=== PATIENT | female | born 1940 | race Caucasian/White ===

== ENCOUNTER 2017-06-30 09:56 | Observation (INO) | payer OTHER ==
[2017-06-30] MEDS ORDERED: NA CHLORIDE 0.9% 500 ML ONE (11:11)
[2017-06-30 11:29] LABS: Potassium 3.7 mEq/L (3.6-5.0)
[2017-06-30 11:31] LABS: Absolute Monocytes 0.4 K/uL (0.1-1.3); Absolute Neutrophil 4.6 K/uL (1.8-8.0); Basophils % 0.2 % (0-1.3); Eosinophils % 0.1 % (0-4.4); Hematocrit 30.8 % (36.0-45.0); Lymphocytes % 16.6 % (15.3-44.8); MCH 31.7 pg (27.0-35.0); MCV 96.1 fL (80-100); MPV 8.3 fL (7.6-11.3); Monocytes % 6.8 % (3.3-12.3)
--- NOTE | 2017-06-30 11:42 | RAD REPORT ---
EXAM DESCRIPTION: CT - Head C Spine Cap Wo Con - 06/30/2017 11:22 am CLINICAL HISTORY: Trauma, head and neck injury. Chest, abdomen and pelvis pain. COMPARISON: None. TECHNIQUE: CT head without contrast. CT cervical spine without contrast with coronal and sagittal reformatted images. CT chest, abdomen and pelvis without contrast with coronal and sagittal reformatted images of the [facility] [place]. All CT scans are performed using dose optimization technique as appropriate and may include automated exposure control or mA/KV adjustment according to patient size. FINDINGS: CT HEAD WITHOUT CONTRAST: A motion degraded study is submitted. No gross intracranial hemorrhage or midline shift is seen. Adva nce generalized brain atrophy is present with advanced periventricular and deep white matter chronic microvascular ischemic changes. Small frontal scalp hematoma. The paranasal sinuses and mastoids are clear. The calvarium is intact. CT CERVICAL SPINE WITHOUT CONTRAST: No fracture or subluxation. The prevertebral soft tissues are normal in thickness. CT CHEST, ABDOMEN, PELVIS WITHOUT CONTRAST: NOTE: Lack of contrast is a significant limitation in the assessment of trauma related findings. Spec ifically, solid organ, vascular and bowel evaluation is significantly limited. A small right pneumothorax is present, estimated at 15% of lung volume.No tension component is seen. No evidence of intra-abdominal visceral injury, free fluid or free air is seen within the above detai led limitations. No concerning pelvic findings. Right-sided inferolateral rib fractures noted, with the tenth rib fracture displaced moderately. Hair line fractures of the ninth and eleventh and twelth ribs are probably also present but less displaced /significant. Air is seen along the right thoracic cage soft tissues. IMPRESSION: Small right-sided pneumothorax is present likely caused by several right lateral inferio r rib fractures. Findings were discussed Dr. Castelan in emergency room 11:30 a.m. 06/30/2017 by telephone.
--- NOTE | 2017-06-30 12:34 | ER ---
Nurse's Notes [facility] Name: Char Hilliard Age: 76 yrs Sex: Female : 1940 Arrival Date: 06/30/2017 Time: 10:02 Bed 5 Private MD: Diagnosis: Right rib fractures, right pneumothorax, fall from upright position, closed head injury, scalp laceration, chest wall contusion, dementia, hypertention - poorly controlled, tachycardia, staple wound closure - right scalp, anemia - unspecified Presentation: 06/30 10:10 Presenting complaint: EMS states: Patient became weak and fell from a standing position ae1 striking her head against an entertainment center on the way down. Transition of care: [facility]. Onset of symptoms was June 30, 2017. Care prior to arrival: V/S 160's systolic. 10:10 Acuity: TUSHAR 3 ae1 10:10 Method Of Arrival: EMS: [facility] ae1 Triage Assessment: 10:04 General: Appears uncomfortable, slender, Behavior is cooperative, anxious, restless, ae1 patient is shaking. Pain: Complains of pain in head and back of head. EENT: No signs and/or symptoms were reported regarding the EENT system. Neuro: Level of Consciousness is awake, alert, obeys commands, Oriented to person. Cardiovascular: Patient's skin is warm and dry. Respiratory: Airway is patent Respiratory effort is even, unlabored, Respiratory pattern is regular, symmetrical. GI: No signs and/or symptoms were reported involving the gastrointestinal system. : No signs and/or symptoms were reported regarding the genitourinary system. Derm: No signs and/or symptoms reported regarding the dermatologic system. Derm: Wound noted top of head, forehead and right mormon Other: Patient has a bandage wrapped around head. Historical: - Allergies: 10:09 Codeine; ae1 10:09 hydromorphone HCl; ae1 10:09 Phenobarbital; ae1 - PMHx: 10:09 Alzheimers; Hypertension; Diabetes - NIDDM; ae1 - Immunization history:: Adult Immunizations. - Social history:: Smoking status: Patient/guardian denies using tobacco. Screenin:05 Abuse screen: Denies threats or abuse. Nutritional screening: No deficits noted. ae1 Tuberculosis screening: No symptoms or risk factors identified. Fall Risk Fall in past 12 months (25 points). Secondary diagnosis (15 points) IV access (20 points). Ambulatory Aid- Crutches/Cane/Walker (15 pts). Gait- Weak (10 pts.). Mental Status- Overestimates/Forgets Limitations (15 pts.). Assessment: 11:05 Reassessment: Cleansed wound to right side of head, laceration approx. 1.5 inches in ae1 length. no bleeding noted, dried blood. 12:47 Reassessment: patient appears more relaxed. ae1 14:06 Reassessment: Patient appears in no apparent distress at this time. Patient is resting ae1 with eyes closed, respirations even and unlabored. 15:11 Reassessment: Report called to MARÍA De Leon receiving nurse in ICU .registration notified ae1 that report has been called. 15:23 Reassessment: Report called to Wendy receiving nurse via telephone, registration ae1 notified that report has been called. Vital Signs: 10:02 BP 162 / 134; Pulse 110; Resp 16; Temp 98.3(A); Pulse Ox 95% on R/A; Weight 49.9 kg (R);ae1 12:46 BP 164 / 116; Pulse 88; Resp 17; Pulse Ox 100% on R/A; ae1 14:08 BP 170 / 100; Pulse 108; Resp 16; Pulse Ox 100% on R/A; ae1 14:56 BP 168 / 98; Pulse 94; Resp 19; Pulse Ox 100% on R/A; ae1 ED Course: 10:02 Patient arrived in ED. ae1 10:12 Triage completed. ae1 10:12 Placed in gown. Bed in low position. Side rails up X2. wellness program manager on. Pulse ox on. ae1 NIBP on. Warm blanket given. 10:12 Arm band placed on right wrist. ae1 10:21 Christian Castelan MD is Attending Physician. kdr 10:50 Jeromy Brownlee, MARÍA is Primary Nurse. ae1 10:50 Note: pt not ready, starting iv. jg1 11:[address] via stretcher. sj 11:08 CT completed. Patient tolerated procedure well. Patient moved back from CT. sj 11:54 Straight cath inserted, using sterile technique, 16 Fr. Specimen obtained. Returned ae1 clear yellow urine. Patient tolerated well. Inserted saline lock: 20 gauge in right antecubital area, using aseptic technique. ,using aseptic technique. BY David Johnson, executive director of nursing, using aseptic technique Blood collected. 12:31 Sean Amanda MD is Hospitalizing Provider. kdr 14:11 Deo Barnard DO is Hospitalizing Provider. kdr 14:56 Patient admitted, IV remains in place. ae1 16:10 No provider procedures requiring assistance completed. Patient admitted, IV remains in ae1 place. Administered Medications: 10:55 Drug: NS 0.9% 500 ml Volume: 500 ml; Route: IV; Rate: 1 bolus; Site: right antecubital; ae1 14:53 Follow up: IV Status: Completed infusion ae1 Outcome: 12:33 Decision to Hospitalize by Provider. kdr 16:11 Admitted to ICU accompanied by nurse, accompanied by tech, via stretcher, room 6, with ae1 chart. 16:11 Condition: stable 16:11 Patient left the ED. ae1 Signatures: Christian Castelan MD MD kdr Garcia, Jessica jg1 Jones, Susan sj Elliott, Andrea, RN RN ae1 Corrections: (The following items were deleted from the chart) 14:12 10:04 Musculoskeletal: ae1 ae1
--- NOTE | 2017-06-30 12:34 | EDPHYS ---
Physician Documentation [facility] Name: Char Hilliard Age: 76 yrs Sex: Female : 1940 Arrival Date: 06/30/2017 Time: 10:02 Bed 5 Private MD: ED Physician Christian Castelan HPI: 06/30 14:14 This 76 yrs old Female presents to ER via EMS with complaints of Fall Injury. kdr 14:14 Little reliable information known. Reported by EMS that the patient fell from standing kdr though it is not known if the patient can stand on a normal basis. No other information was known. Historical: - Allergies: 10:09 Codeine; ae1 10:09 hydromorphone HCl; ae1 10:09 Phenobarbital; ae1 - PMHx: 10:09 Alzheimers; Hypertension; Diabetes - NIDDM; ae1 - Immunization history:: Adult Immunizations. - Social history:: Smoking status: Patient/guardian denies using tobacco. ROS: 14:14 Constitutional: Unobtainable secondary to dementia kdr 14:14 Unable to obtain ROS due to baseline dementia. Exam: 14:14 Constitutional: This is a well developed, well nourished patient who is awake, alert, kdr and in no acute distress. Head/Face: Normocephalic - right sided 1.5 cm lac Eyes: Pupils equal round and reactive to light, extra-ocular motions intact. Lids and lashes normal. Conjunctiva and sclera are non-icteric and not injected. Cornea within normal limits. Periorbital areas with no swelling, redness, or edema. Neck: Trachea midline, no thyromegaly or masses palpated, and no cervical lymphadenopathy. Supple, full range of motion without nuchal rigidity, or vertebral point tenderness. No Meningismus. Chest/axilla: Normal chest wall appearance and motion. Right sided tenderness with no deformity. No lesions are appreciated. Cardiovascular: Regular rate and rhythm with a normal S1 and S2. No gallops, murmurs, or rubs. Normal PMI, no JVD. No pulse deficits. Respiratory: Lungs have equal breath sounds bilaterally, clear to auscultation and percussion. No rales, rhonchi or wheezes noted. No increased work of breathing, no retractions or nasal flaring. Abdomen/GI: Soft, non-tender, with normal bowel sounds. No distension or tympany. No guarding or rebound. No evidence of tenderness throughout. Skin: Warm, dry with normal turgor. Normal color with no rashes, no lesions, and no evidence of cellulitis. MS/ Extremity: Pulses equal, no cyanosis. Neurovascular intact. Full, normal range of motion. Vital Signs: 10:02 BP 162 / 134; Pulse 110; Resp 16; Temp 98.3(A); Pulse Ox 95% on R/A; Weight 49.9 kg (R);ae1 12:46 BP 164 / 116; Pulse 88; Resp 17; Pulse Ox 100% on R/A; ae1 14:08 BP 170 / 100; Pulse 108; Resp 16; Pulse Ox 100% on R/A; ae1 14:56 BP 168 / 98; Pulse 94; Resp 19; Pulse Ox 100% on R/A; ae1 MDM: 12:33 Patient medically screened. kdr 14:14 Data reviewed: vital signs, nurses notes, lab test result(s), EKG, radiologic studies. kdr Counseling: I had a detailed discussion with the patient and/or guardian regarding: the historical points, exam findings, and any diagnostic results supporting the discharge/admit diagnosis, lab results, radiology results. Physician consultation: Sean Amanda initially asked me to admit the patient to him. Then a few minutes ago, he called back and indicated that the patient was not his at this time and asked that I admit the patient to the Hospitalist service. 06/30 10:39 Order name: CBC with Diff kdr 06/30 10:39 Order name: Chem 7 kdr 06/30 11:29 Order name: Basic Metabolic Panel; Complete Time: 12:18 EDND 06/30 11:31 Order name: CBC with Automated Diff; Complete Time: 12:18 EDND 06/30 11:55 Order name: Urine Dipstick--Ancillary (enter results) ms 06/30 14:15 Order name: Urine Dipstick-Ancillary EDND 06/30 10:39 Order name: CT Traumagram (Head C Spine CAP wo con) kdr 06/30 10:39 Order name: Urine Dipstick-Ancillary (obtain specimen): Cath; Complete Time: 10:41 kdr 06/30 11:42 Order name: CT; Complete Time: 12:18 EDMS Administered Medications: 10:55 Drug: NS 0.9% 500 ml Volume: 500 ml; Route: IV; Rate: 1 bolus; Site: right antecubital; ae1 14:53 Follow up: IV Status: Completed infusion ae1 Disposition: 06/30/17 12:33 Hospitalization ordered by Deo Barnard for Observation. Preliminary diagnosis is Right rib fractures, right pneumothorax, fall from upright position, closed head injury, scalp laceration, chest wall contusion, dementia, hypertention - poorly controlled, tachycardia, staple wound closure - right scalp, anemia - unspecified. - Bed requested for Intensive Care Unit. - Status is Observation. ae1 - Condition is Stable. - Problem is new. - Symptoms are unchanged. UTI on Admission? No Signatures: Dispatcher [employer] EDMS Christian Castelan MD MD kdr Solis, Maria ms Elliott, Andrea, RN RN ae1 Blanca Reza RN RN df
[2017-06-30] MEDS ORDERED: ACETAMINOPHEN 500 MG TAB PO PRN (12:40)
[2017-06-30] MEDS ORDERED: ONDANSETRON 4 MG/2 ML VIAL IV PRN (12:40)
[2017-06-30 14:15] LABS: Urine Blood TRACE (NEG); Urine Glucose NEGATIVE (NEG); Urine Protein 1+ (NEG)
[2017-06-30] MEDS ORDERED: ZIPRASIDONE MESYLA 20 MG/VIAL IM PRN (15:16)
[2017-06-30] MEDS ORDERED: HYDROCODONE/APAP 7.5/325 MG TAB PO PRN (15:16)
[2017-06-30] MEDS ORDERED: WATER FOR INJ,STERILE 10 ML IM PRN (15:16)
[2017-06-30] MEDS ORDERED: TRAMADOL HCL 50 MG TAB PO PRN (15:16)
[2017-06-30] MEDS ORDERED: D5 0.9 NS 1,000 ML IV SCH (15:16)
[2017-06-30] MEDS ORDERED: MORPHINE 2 MG/ML SYR IV PRN (15:16)
--- NOTE | 2017-06-30 15:34 | P.HP ---
Certification for Inpatient Patient admitted to: Observation With expected LOS: <2 Midnights Patient will require the following post-hospital care: Hospice Practitioner: I am a practitioner with admitting privileges, knowledge of patient current condition, hospital course, and medical plan of care. Services: Services provided to patient in accordance with Admission requirements found in Title 42 Section 412.3 of the Code of Federal Regulations Patient History Date of Service: 06/30/17 Primary Care Provider: [facility] detention/hospice Reason for admission: Fall, laceration, pneumothorax History of Present Illness: 76-year-old female with dementia recently hospitalized and admitted to hospice, came to the ER after a fall. She apparently fell at the detention. Patient suffered a laceration to her right posterior area of the head. The patient was confused and appeared dehydrated. CT traumagram showed no fracture to the C-spine. No intracranial abnormality was noted except for chronic ischemic changes. CT did show fractures to the right ribcage. The 10th rib was mildly displaced. Fractures to the 9th 11th and 12th showed minimal displacement. The patient was also found to have a small pneumothorax. It measured about 15%. No tension pneumothorax was noted. The patient was anemic. Lab otherwise unremarkable. No UTI was identified. Patient also had a healing left facial hematoma. The patient appeared confused. The patient was evaluated by surgery. Surgery recommended that we monitor the patient closely. I was asked to admit the patient. When I saw the patient in the ER, she appeared disheveled. Patient is cachectic appearing. Patient confused. No family was present Allergies phenobarbital Adverse Reaction (Intermediate, Verified 05/11/16 12:52) Nausea/Vomiting meperidine [From Demerol] Adverse Reaction (Verified 05/13/16 08:44) Nausea/Vomiting codeine Allergy (Uncoded 06/24/17 05:31) Unknown hydromorphone HCl Allergy (Uncoded 06/24/16 08:28) Unknown Home medications list reviewed: Yes Home Medications: Acetaminophen [Tylenol] 325 mg PO Q6H PRN 06/24/17 Magnesium Hydroxide [Milk of Magnesia] 1,200 mg PO DAILY PRN 06/24/17 Ensure Enlive 237 ml PO BID #60 can 06/25/17 Multivitamin/Iron/Folic Acid [Multi-Day Plus Iron Tablet] 1 each PO DAILY #90 tablet 06/25/17 Sulfamethoxazole/Trimethoprim [Bactrim Ds Tablet] 1 each PO BID #14 tablet 06/25 - Past Medical/Surgical History Diabetic: No -: HTN -: Anemia -: Chronic lower back pain -: Alzheimer's dementia, severe -: Skin cancer removed -: Tubal ligation -: Hysterectomy -: Tonsilectomy Psychosocial/ Personal History: Power of family law attorney is a friend. Patient currently in hospice at a detention. [id number] DNR in place. - Family History Family History: Reviewed- Non-Contributory - Social History Smoking Status: Unknown if ever smoked Alcohol use: No CD- Drugs: No Caffeine use: Yes Place of Residence: [facility] Review of Systems is unable to be obtained Physical Examination - Physical Exam General: Alert, Cachectic, Disheveled, Demented, Confused HEENT: Other (Laceration to the posterior area of the head. It is located just behind the ear. No bleeding is noted. She also has a skin tear to the right frontal region. A healed hematoma noted to the left facial orbital area.) Neck: Supple, No Thyromegaly Respiratory: Clear to auscultation bilaterally, Normal air movement Cardiovascular: Normal pulses, Regular rate/rhythm Gastrointestinal: Normal bowel sounds, Soft and benign, Non-distended, No tenderness, No masses, No rebound, No guarding Musculoskeletal: No erythema, No tenderness, No warmth Integumentary: No erythema, Other (As above) Neurological: Normal speech, Dementia (Patient with severe dementia) - Studies Laboratory Data (last 24 hrs) 06/30/17 10:50: Sodium 141, Potassium 3.7, BUN 28 H, Creatinine 0.66, Glucose 153 H 06/30/17 10:50: WBC 6.1, Hgb 10.1 L, Hct 30.8 L, Plt Count 230 Assessment and Plan - Problems (Diagnosis) (1) Laceration of scalp Current Visit: Yes Status: Acute Plan: Laceration to scalp will receive braydon. Will continue with wound care. Patient was recently hospitalized for acute encephalopathy related to her dementia and UTI. On the most recent admission which occurred within the past 2 weeks, her power of family law attorney placed in hospice care. Patient has out-of- hospital DNR. Will reassess and make sure it that will continue. Patient also has right pneumothorax. This is small. This to be monitored with as per surgery. Will recheck chest x-ray in 6 hr to monitor. Will continue with oxygen. Physical therapy will need to be reassessed. Will have transition social worker confirm hospice and advanced directives. Case discussed with nurses. They are to confirm. I did leave a message with the power of family law attorney. Await for his call. Qualifiers: Encounter type: initial encounter Qualified Code(s): S01.01XA - Laceration without foreign body of scalp, initial encounter (2) Skin tear Current Visit: Yes Status: Acute Plan: Continue with wound care. (3) Pneumothorax Current Visit: Yes Status: Acute Plan: Small right pneumothorax noted. Will recheck chest x-ray in 6 hr. Will maintain oxygen saturation Qualifiers: Pneumothorax type: traumatic Encounter type: initial encounter Qualified Code(s): S27.0XXA - Traumatic pneumothorax, initial encounter (4) Multiple rib fractures Current Visit: Yes Status: Acute Plan: Multiple rib fractures noted. Will continue monitor closely. Will provide medication for pain. Qualifiers: Encounter type: initial encounter Fracture type: closed Laterality: right Qualified Code(s): S22.41XA - Multiple fractures of ribs, right side, initial encounter for closed fracture (5) Depression Current Visit: Yes Status: Chronic Plan: Will continue with her medication. Will provide medication for agitation Qualifiers: Depression Type: unspecified Qualified Code(s): F32.9 - Major depressive disorder, single episode, unspecified (6) Hypertension Current Visit: Yes Status: Chronic Plan: Will continue with her medication. Qualifiers: Hypertension type: essential hypertension Qualified Code(s): I10 - Essential (primary) hypertension (7) Anemia Current Visit: No Status: Chronic Plan: Will monitor closely. Qualifiers: Anemia type: unspecified type Qualified Code(s): D64.9 - Anemia, unspecified (8) Status post fall Onset Date: 06/24/17 Current Visit: No Status: Acute Plan: Continue with above plan of care. (9) Traumatic hematoma of left eyelid Onset Date: 06/24/17 Current Visit: No Status: Chronic Plan: Healing wound. Will continue with wound care. Qualifiers: Encounter type: initial encounter Qualified Code(s): S00.12XA - Contusion of left eyelid and periocular area, initial encounter (10) Alzheimer's dementia, late onset Onset Date: 06/24/17 Current Visit: No Status: Chronic Plan: Patient with severe dementia. Patient on hospice. Patient has [id number] DNR. Will need to confirm. Qualifiers: Dementia behavioral disturbance: with behavioral disturbance Qualified Code (s): G30.1 - Alzheimer's disease with late onset; F02.81 - Dementia in other diseases classified elsewhere with behavioral disturbance; F02.81 - Dementia in other diseases classified elsewhere with behavioral disturbance; F02.81 - Dementia in other diseases classified elsewhere with behavioral disturbance Discharge Plan: [facility] (With hospice) Plan to discharge in: 48 Hours - Advance Directives Does patient have a Living Will: No Does patient have a Durable POA for Healthcare: No - Code Status/Comfort Care Code Status Assessed: No (Will need to confirm her [id number] DNR. Along with hospice) Comfort Measures: Hospice Care Time Spent Managing Pts Care (In Minutes): 55
[2017-06-30] MEDS: ENOXAPARIN 40 MG/0.4 ML SQ SCH (16:00)
--- NOTE | 2017-06-30 16:49 | RAD REPORT ---
EXAM DESCRIPTION: RAD - Chest Single View - 06/30/2017 4:30 pm CLINICAL HISTORY: Pneumothorax COMPARISON: CT trauma study June 30, portable chest June 24 TECHNIQUE: AP portable chest image was obtained in expiration CT 1619 hours . FINDINGS: Patient has baseline fibrotic lung change that is stable. No pulmonary contusion, pulmonar y edema or other new or progressive lung parenchymal process. Known rib fractures are difficult to as sess on this study. No gross change. Heart and vasculature are normal. No new or enlarging pleural fl uid or blood collection. Scan artifact overlies the lateral left chest. A small right apical pneumoth orax is present. Anterior pneumothorax cannot be accurately assessed on portable imaging. Comparing w ith a CT imaging is difficult. There is no evidence for enlargement of the pneumothorax. Trachea is m idline. No acute aortic findings suspected. IMPRESSION: Small 5-10% right apical pneumothorax. No suspicion for enlargement since the earlier CT study. Any anterior pneumothorax component cannot be accurately assessed on a portable examination. No pulmonary contusion, pulmonary edema or pleural fluid/ blood collection.
[2017-06-30] MEDS: MORPHINE 4 MG/ML SYR IV PRN (16:59)
[2017-06-30] MEDS: LORazepam 2 MG/ML VIAL IV PRN (17:20)
[2017-06-30] MEDS: NA CHLORIDE 0.9% 1,000 ML IV SCH (17:38)
[2017-06-30] MEDS ORDERED: DULOXETINE 30 MG CAP PO SCH (21:00)
[2017-06-30] MEDS: MEMANTINE HCL 10 MG TABLET PO SCH (21:42)
[2017-06-30] MEDS: CARVEDILOL 6.25 MG TAB PO SCH (21:42)
--- NOTE | 2017-07-01 00:09 | PN ---
Date of Progress Note: 06/30/2017 Time: 2114 This is a followup note from the H and P today. The patient is stable. Vital signs are stable. No short of breath. No chest pain. O2 saturation 99%. The patient denies any shortness of breath. Ch est, bilateral breath sounds. No crepitus. Chest x-ray reviewed and shows about 10% pneumothorax wi th small one with no evidence of tension pneumothorax. Plan: We are going to continue observation. Her x-ray will be done, O2 sat monitoring, neuro checks , abdomen examination. Right now the abdomen is also benign. TEZ/MODWilton Voice ID: [id number] Report ID: [id number]
[2017-07-01] MEDS: MORPHINE 4 MG/ML SYR IV PRN ×2 (03:58→08:52)
[2017-07-01] MEDS: NA CHLORIDE 0.9% 1,000 ML IV SCH (05:41)
[2017-07-01 06:24] LABS: Absolute Lymphocytes (CBC) 1.9 K/uL (0.7-4.9); Absolute Monocytes 0.4 K/uL (0.1-1.3); Absolute Neutrophil 2.9 K/uL (1.8-8.0); Basophils % 0.6 % (0-1.3); Hematocrit 27.6 % (36.0-45.0); MCV 96.1 fL (80-100); MPV 8.3 fL (7.6-11.3); Monocytes % 8.4 % (3.3-12.3); RBC Red Blood Cell Count 2.87 M/uL (3.86-4.86)
[2017-07-01 06:33] VITALS: BMI 19.4
[2017-07-01 06:41] LABS: BUN Blood Urea Nitrogen 17 mg/dL (6-20); Bicarbonate 28 mEq/L (21-31); Glomerular Filtration Rate > 90 mL/min (=/>90); Glucose Level 95 mg/dL (65-120); Magnesium 1.7 mg/dL (1.8-2.5); Potassium 4.1 mEq/L (3.6-5.0); Sodium Level 138 mEq/L (135-145)
[2017-07-01 07:51] VITALS: O2SAT 99
[2017-07-01] MEDS: ENOXAPARIN 40 MG/0.4 ML SQ SCH (08:32)
[2017-07-01] MEDS: MEMANTINE HCL 10 MG TABLET PO SCH (08:32)
[2017-07-01] MEDS: CARVEDILOL 6.25 MG TAB PO SCH (08:33)
[2017-07-01] MEDS ORDERED: ISOSORBIDE MONO SR 30 MG TAB PO SCH (09:00)
--- NOTE | 2017-07-01 09:41 | RAD REPORT ---
EXAM DESCRIPTION: RAD - Chest Single View - 07/01/2017 8:14 am CLINICAL HISTORY: History of pneumothorax. COMPARISON: 06/30/2017, 06/24/2017 FINDINGS: Portable technique limits examination quality. Small right pneumothorax is again noted, similar in appearance. No significant progression is seen. T he heart is normal in size. Several right-sided inferolateral rib fractures noted.
[2017-07-01] MEDS: LORazepam 2 MG/ML VIAL IV PRN (11:35)
--- NOTE | 2017-07-01 12:39 | P.DS ---
Admission Date: 06/30/17 Discharge Date: 07/01/17 Primary Care Provider: [facility] Disposition: TRANSFER TO SENIOR CARE Discharge Condition: GOOD Reason for Admission: Fall, laceration, pneumothorax Consultations: Surgery-Dr. Castaneda Procedures: CT Scan: COMPARISON: None. TECHNIQUE: CT head without contrast. CT cervical spine without contrast with coronal and sagittal reformatted images. CT chest, abdomen and pelvis without contrast with coronal and sagittal reformatted images of the spine. All CT scans are performed using dose optimization technique as appropriate and may include automated exposure control or mA/KV adjustment according to patient size. FINDINGS: CT HEAD WITHOUT CONTRAST: A motion degraded study is submitted. No gross intracranial hemorrhage or midline shift is seen. Advance generalized brain atrophy is present with advanced periventricular and deep white matter chronic microvascular ischemic changes. Small frontal scalp hematoma. The paranasal sinuses and mastoids are clear. The calvarium is intact. CT CERVICAL SPINE WITHOUT CONTRAST: No fracture or subluxation. The prevertebral soft tissues are normal in thickness. CT CHEST, ABDOMEN, PELVIS WITHOUT CONTRAST: NOTE: Lack of contrast is a significant limitation in the assessment of trauma related findings. Specifically, solid organ, vascular and bowel evaluation is significantly limited. A small right pneumothorax is present, estimated at 15% of lung volume.No tension component is seen. No evidence of intra-abdominal visceral injury, free fluid or free air is seen within the above detailed limitations. No concerning pelvic findings. Right-sided inferolateral rib fractures noted, with the tenth rib fracture displaced moderately. Hairline fractures of the ninth and eleventh and twelth ribs are probably also present but less displaced/significant. Air is seen along the right thoracic cage soft tissues. IMPRESSION: Small right-sided pneumothorax is present likely caused by several right lateral inferior rib fractures. Findings were discussed Dr. Castelan in emergency room 11:30 a.m. 06/30/2017 by telephone. - Problems (1) Laceration of scalp Onset Date: 07/01/17 Current Visit: Yes Status: Acute Qualifiers: Encounter type: initial encounter Qualified Code(s): S01.01XA - Laceration without foreign body of scalp, initial encounter (2) Skin tear Onset Date: 07/01/17 Current Visit: Yes Status: Acute (3) Pneumothorax Onset Date: 07/01/17 Current Visit: Yes Status: Acute Qualifiers: Pneumothorax type: traumatic Encounter type: initial encounter Qualified Code(s): S27.0XXA - Traumatic pneumothorax, initial encounter (4) Multiple rib fractures Onset Date: 07/01/17 Current Visit: Yes Status: Acute Qualifiers: Encounter type: initial encounter Fracture type: closed Laterality: right Qualified Code(s): S22.41XA - Multiple fractures of ribs, right side, initial encounter for closed fracture (5) Depression Onset Date: 07/01/17 Current Visit: Yes Status: Chronic Qualifiers: Depression Type: unspecified Qualified Code(s): F32.9 - Major depressive disorder, single episode, unspecified (6) Hypertension Onset Date: 07/01/17 Current Visit: Yes Status: Chronic Qualifiers: Hypertension type: essential hypertension Qualified Code(s): I10 - Essential (primary) hypertension (7) Anemia Onset Date: 07/01/17 Current Visit: Yes Status: Chronic Qualifiers: Anemia type: unspecified type Qualified Code(s): D64.9 - Anemia, unspecified (8) Status post fall Onset Date: 06/24/17 Current Visit: No Status: Acute (9) Traumatic hematoma of left eyelid Onset Date: 06/24/17 Current Visit: Yes Status: Chronic Qualifiers: Encounter type: initial encounter Qualified Code(s): S00.12XA - Contusion of left eyelid and periocular area, initial encounter (10) Alzheimer's dementia, late onset Onset Date: 06/24/17 Current Visit: Yes Status: Chronic Qualifiers: Dementia behavioral disturbance: with behavioral disturbance Qualified Code (s): G30.1 - Alzheimer's disease with late onset; F02.81 - Dementia in other diseases classified elsewhere with behavioral disturbance; F02.81 - Dementia in other diseases classified elsewhere with behavioral disturbance; F02.81 - Dementia in other diseases classified elsewhere with behavioral disturbance Brief History of Present Illness: 76-year-old female with dementia recently hospitalized and admitted to hospice, came to the ER after a fall. [facility]. Patient suffered a laceration to her right posterior area of the head. The patient was confused and appeared dehydrated. CT traumagram showed no fracture to the C-spine. No intracranial abnormality was noted except for chronic ischemic changes. CT did show fractures to the right ribcage. The 10th rib was mildly displaced. Fractures to the 9th 11th and 12th showed minimal displacement. The patient was also found to have a small pneumothorax. It measured about 15%. No tension pneumothorax was noted. The patient was anemic. Lab otherwise unremarkable. No UTI was identified. Patient also had a healing left facial hematoma. The patient appeared confused. The patient was evaluated by surgery. Surgery recommended that we monitor the patient closely. I was asked to admit the patient. When I saw the patient in the ER, she appeared disheveled. Patient is cachectic appearing. Patient confused. No family was present Hospital Course: The patient did well overnight. She was observed in intensive care. Patient's pain was stable with medication. Repeat x-rays showed no progression of pneumothorax. CT scan was reviewed. Multiple fractures to the right rib was also noted. Her case was discussed with her medical power of quality assurance tester. Medical power of quality assurance tester wanted her to continue with hospice. Options were given on whether to monitor her for 24-48 hr or to go with hospice with comfort measures. The medical power of quality assurance tester wanted her to [facility] with [facility]. Arrangements have been made. Will continue with comfort measures to include medication for pain and agitation. Patient may continue her other home medications. Fall precautions address Vital Signs/Physical Exam: Temp Pulse Resp BP Pulse Ox 98.8 F 102 H 14 126/95 H 98 07/01/17 04:00 07/01/17 08:33 07/01/17 06:00 07/01/17 08:33 07/01/17 06:00 General: Alert, Demented, Confused HEENT: Other (Healing laceration to the right postauricular area.) Neck: Supple Respiratory: Clear to auscultation bilaterally, Normal air movement Cardiovascular: Normal pulses, Regular rate/rhythm Gastrointestinal: Normal bowel sounds, Soft and benign, Non-distended, No tenderness, No masses, No rebound, No guarding Musculoskeletal: No erythema, No tenderness, No warmth Integumentary: No tenderness/swelling, No erythema, No warmth, Other (Patient cachetic appearing. Muscle Wasting to the upper lower extremities.) Neurological: Normal speech, Dementia Laboratory Data at Discharge: WBC 5.3 K/uL (4.3-10.9) 07/01/17 05:50 Hgb 9.2 g/dL (12.0-15.0) L 07/01/17 05:50 Hct 27.6 % (36.0-45.0) L 07/01/17 05:50 Plt Count 193 K/uL (152-406) 07/01/17 05:50 Sodium 138 mEq/L (135-145) 07/01/17 05:50 Potassium 4.1 mEq/L (3.6-5.0) 07/01/17 05:50 BUN 17 mg/dL (6-20) 07/01/17 05:50 Creatinine 0.59 mg/dL (0.44-1.00) 07/01/17 05:50 Glucose 95 mg/dL (65-120) 07/01/17 05:50 Magnesium 1.7 mg/dL (1.8-2.5) L 07/01/17 05:50 Home Medications: Atropine [Atropine Sulfate*] 10 drops SL PRN PRN 06/30/17 Lorazepam [Ativan*] 0.5 mg PO Q2HP PRN 06/30/17 Morphine Sulfate 20 mg PO Q2HP PRN 06/30/17 Carvedilol [Coreg*] 6.25 mg PO BID #60 tab 07/01/17 Memantine HCl [Namenda*] 10 mg PO BID tablet 07/01/17 New Medications: Carvedilol [Coreg*] 6.25 mg PO BID #60 tab Patient Discharge Instructions: 1. Patient will return to assisted living with hospice. 2. Patient presented with a fall. She was found to have a pneumothorax to the right side with rib fractures. Patient remains stable at this time. Discussed with medical power of quality assurance tester. Patient to remain DNR and continue with hospice. Will continue with comfort measures and pain control. Diet: Comfort feeding Activity: Fall precautions Time spent managing pt's care (in minutes): 55
[2017-07-01 14:16] VITALS: BP 96/61
[2017-07-01 15:14] VITALS: TEMP 97.9
--- NOTE | 2017-07-01 15:19 | CON ---
Date of Consultation: 06/30/2017 Indications: This is the case of a 76-year-old patient, apparently she has been here last few days b efore frequent fall. At this time, she consequently noted to fall and found to have multiple rib fra ctures and also a contusions on the face and the skull. She found to have also what they call a smal l pneumothorax in the right side. Medical doctor who admitted the patient to the hospital, but then since the history is there, they decided also to include the trauma service on which I agree. Exact mechanism of trauma is unknown. The patient has a history of dementia and Alzheimer and she cannot g izabela any information. Review of systems cannot be obtained. She right now vilma in bed. Primary work up was done by the ER staff, physician, they were almost ready for admission. The patient has no C-c ollar and backboard and the ER physician took care about already. The patient is sitting down and ta lking, although it is hard to say what is the normal mental status. Although the ER staff here knows her already and they claimed she always like this. She was here about 5 days ago with fall apparent ly. x-ray shows a small lac on the right periatrial region about 0.5 cm with some bruises on the left face region. Other than that, patient did not complain of anything else. Review of Systems: Unable to be obtain with all limitations but at least; Constitutional: She denies any fever. Respiratory: Denies any shortness of breath. Gastrointestinal: She denies any abdominal pain. Allergies: INCLUDE CODEINE, HYDROMORPHONE, PHENOBARBITAL. Past Medical History: Includes alzheimer, hypertension, diabetes, noninsulin dependent diabetes. Social History: She does not smoke. She does not drink alcohol. Family History: Unknown. Physical Examination: General: The patient is awake and alert. A small tiny 5 cm superficial laceration in the right fron toparietal region. Ecchymoses of the left forehead region. HEENT: EOM positive. No entrapment. No bleeding. The pupils are anicteric, equal and reactive. N o otorrhea. No rhinorrhea. Tongue midline. Uvula midline. Mandible with no tenderness and no step -off. Neck: Supple. No step-off. No pinpoint tenderness. No JVD. Chest: Bilateral breath sounds present. Right-sided some tenderness on the palpation of the rib cag e. Although, no step-off seen. No ecchymosis. No lacerations. Lungs: Bilateral breath sounds present. Heart: S1 and S2. Abdomen: Soft and depressible. Nontender. Bowel sounds positive. No guarding or rebound. No phyllis toneal signs. Pelvis: Stable. Rectal: No bleeding. Breast: Deferred. Extremities: The patient is nonambulatory, but there are no gross deformities. No open lacerations. Dorsalis pedis pulses bilaterally are present although at present no cyanosis. Back: No pinpoint tenderness. No step-off. Neurologic: GCS 15. Laboratory Data: Blood work shows WBC count of 6.1, hemoglobin of 10.1, platelets of 230. Sodium is 141, potassium 3.7, chloride is 103. BUN is 28, creatinine is 0.66. CAT scan of the head, C-spine, chest, abdomen and pelvis, interpreted by Dr. Orozco small right-sided pneumothorax with multiple righ t-sided rib fractures including the 10th, the 9th, the 11th and the 12th. The claim is estimated abo ut 50% pneumothorax with no tension component on it. Assessment: This is a 76-year-old patient, status post fall and chronic mental status, pa tient to see if this is associated to new injury or not. Although, CT scan does not seem to have any intracranial abnormalities. I believe this patient still be have to be watched at least in an ICU s etting. She is supposed to be as per the staff on hospice, but I do not have a details on that. So, I am going to give recommendations as if she was not in hospice, since I do not have that documentat ion for me and that includes either put a chest tube or keep the close evaluation in the ICU. On see ing her x-rays and examinations we see that pneumothorax increased, we are going to have to find a wa y how to get a consent for the chest tube since the patient cannot give at this moment, she is satura ting 100%. She is not tachypneic and in no distress. She has bilateral breath sounds at this moment . I am going ask ICU to have a chest tube tray at standby in case clinically she deteriorates. We w ill proceed with that. Although, once again, a counter issue of that I am being told here that she m ight be somewhat in hospice, but that has to be addressed by the primary doctor and the family as jenni n as we can. So, have clear understanding of our limitations are and not do something the patient do es not want to do or have done on her. That does not take away from the close observation and making sure that clinically she is okay and improving. TEZ/FANG Voice ID: [id number] Report ID: [id number]
== END 2017-07-01 14:50 | disposition hospice, inpatient (51) ==
LOC: ER 09:56 → ERHOLD 12:39 → 3RD-ICU 15:12
PROVIDERS: ADMIT Family Medicine; ATTEND Family Medicine
DX: S27.0XXA Traumatic pneumothorax, initial encounter (principal); S22.41XA Multiple fractures of ribs, right side, initial encounter for closed fracture; S00.12XA Contusion of left eyelid and periocular area, initial encounter; S01.01XA Laceration without foreign body of scalp, initial encounter; W18.30XA Fall on same level, unspecified, initial encounter; Y92.199 Unspecified place in other specified residential institution as the place of occurrence of the external cause; F32.9 Major depressive disorder, single episode, unspecified; I10 Essential (primary) hypertension; D64.9 Anemia, unspecified; G30.1 Alzheimer's disease with late onset; F02.81 Dementia in other diseases classified elsewhere, unspecified severity, with behavioral disturbance
CPT/HCPCS: 36415; 51702; 70450; 71045 ×2; 71250; 72125; 80048 ×2; 81003; 83735; 85025 ×2; 96360; 96361; 99285; G0378 ×2; J1650 ×2; J7030 ×2